=== PATIENT | female | born 1945 | race Caucasian/White ===

== ENCOUNTER 2016-09-16 19:43 | Emergency (ER) | payer SELFPAY ==
[~2016-09-16] VITALS: Ht 165.1 cm; Wt 110.5 kg
[2016-09-16 19:46] VITALS: Ht 165.1 cm; Wt 110.5 kg
[2016-09-16] MEDS ORDERED: NICARDipine HCL 30 MG CAPSULE PO ONE (20:30)
[2016-09-16 21:37] LABS: ADD SCAN DIFF NO
[2016-09-16 21:54] LABS: CREATININE 0.82 mg/dl (0.44-1.00)
[2016-09-16 21:55] LABS: CALCIUM 9.2 mg/dl (8.4-10.2)
[2016-09-16 22:06] LABS: TROPONIN-I 0.016 ng/ml (0.00-0.12)
--- NOTE | 2016-09-16 22:06 | RADRPT ---
PROCEDURE: CT Brain without contrast. CLINICAL INDICATION: Headache. TECHNIQUE: A CT of the brain was performed on a multislice detector CT scanner utilizing axial sec tions from the skull base through the vertex without contrast. Images were reviewed on a high-resolu [employer] PACS workstation. Exam CTDlvol = 47 mGy and DLP = 635 mGy-cm. COMPARISON: None available FINDINGS: There is age appropriate central and peripheral atrophy. There is no midline shift. There is a mil d degree of supratentorial periventricular and subcortical white matter hypodensities. There is no definite acute stroke. There is no mass lesion. There is no intracranial hemorrhage or abnormal ex tra-axial fluid collection. Visualized paranasal sinuses are clear. IMPRESSION: 1. No acute intracranial abnormality. 2. Nonspecific white matter changes most commonly seen with microvascular ischemic disease. RPTAT: [facility]VK .Myles Posadas MD, Date Time Electronically viewed and signed by .Mlyes Posadas MD, MD on 09/16/2016 22:06 .K/
--- NOTE | 2016-09-16 22:09 | ERD ---
ER Documentation Chief Complaint Date/Time DATE: 09/16/16 TIME: 22:05 Chief Complaint palpitations since last night. no cp/sob during intake. run out of meds HPI Very pleasant 71-year-old female who presents with generalized malaise for several months. The patient states that she ran out of her medications and has not been taking them for 4 months. Her blood pressure has been consistently elevated in the 200 range systolic. The patient describes generalized malaise over this timeframe with occasional headaches that are gradual, frontal and dull. Patient described feeling not well last night but denied any chest pain or shortness of breath. At triage she noted palpitations but denies this to me. She denies any exertional symptoms, no slurred speech, no motor weakness. No falls. ROS All systems reviewed and are negative except as per history of present illness. Medications Home Meds Active Scripts Levothyroxine Sodium* (Levothyroxine Sodium*) 75 Mcg Tablet, 75 MCG PO BEFORE BREAKFAST, #30 TAB Prov:ARIELLA HURST MD 09/16/16 Hydrochlorothiazide* (Hydrochlorothiazide*) 25 Mg Tab, 25 MG PO DAILY, #30 TAB Prov:ARIELLA HURST MD 09/16/16 Aspirin* (Aspirin* EC) 81 Mg Tablet.dr, 81 MG PO DAILY, #30 TAB Prov:ARIELLA HURST MD 09/16/16 Amlodipine Besylate* (Amlodipine Besylate*) 10 Mg Tablet, 10 MG PO DAILY, #30 TAB Prov:ARIELLA HURST MD 09/16/16 Lisinopril* (Lisinopril*) 2.5 Mg Tablet, 2.5 MG PO DAILY, #30 TAB Prov:ARIELLA HURST MD 09/16/16 Allergies Allergies: Coded Allergies: Penicillins (Verified Allergy, Unknown, rash, 09/16/16) PMhx/Soc History of Surgery: Yes (Rt shoulder sx,cataract sx,tonsillectomy, X4) Anesthesia Reaction: No Hx Neurological Disorder: No Hx Respiratory Disorders: No Hx Cardiac Disorders: Yes (HTN, high cholesterol) Hx Psychiatric Problems: No Hx Miscellaneous Medical Probl: Yes (thyroid problem) Hx Alcohol Use: No Hx Substance Use: No Hx Tobacco Use: No Smoking Status: Never smoker FmHx Family History: No diabetes Physical Exam Vitals Vital Signs Date Time Temp Pulse Resp B/P Pulse Ox O2 Delivery O2 Flow Rate FiO2 09/16/16 21:19 55 18 195/115 97 Room Air 09/16/16 20:39 55 14 207/120 98 Room Air 09/16/16 19:46 97.7 62 20 236/112 98 Physical Exam General: Well developed, well nourished, no acute distress Head: Normocephalic, atraumatic. Eyes: Pupils equally reactive, EOM intact ENT: Moist mucous membranes Neck: Supple, no lymphadenopathy Respiratory: Lungs clear bilaterally, no distress Cardiovascular: RRR, no murmurs, rubs, or gallops Abdominal: Soft, non-tender, non-distended, no peritoneal signs : Deferred MSK: No edema, no unilateral swelling, 5/5 strength Neurologic: Alert and oriented, moving all extremities, normal speech, no focal weakness, no cerebellar signs, steady gait Skin: No rash Psych: Normal mood Result Diagram: 09/16/16209909/16/16 2100 Results 24 hrs Laboratory Tests Test 09/16/16 21:00 Anion Gap 15 Basophils # 0.110^3/ul Basophils % 1.1% Blood Urea Nitrogen 19mg/dl Calcium Level 9.2mg/dl Carbon Dioxide Level 26mmol/L Chloride Level 104mmol/L Creatinine 0.82mg/dl Eosinophils # 0.410^3/ul Eosinophils % 5.1% Glucose Level 116mg/dl Hematocrit 43.8% Hemoglobin 14.9g/dl Lymphocytes # 3.010^3/ul Lymphocytes % 38.9% Mean Corpuscular Hemoglobin 30.2pg Mean Corpuscular Hemoglobin Concent 34.0g/dl Mean Corpuscular Volume 88.8fl Mean Platelet Volume 11.1fl Monocytes # 0.710^3/ul Monocytes % 8.8% Neutrophils # 3.510^3/ul Neutrophils % 46.0% Nucleated Red Blood Cells # 0.010^3/ul Nucleated Red Blood Cells % 0.0/100WBC Platelet Count 35452^3/UL Potassium Level 4.0mmol/L Red Blood Count 4.9310^6/ul Red Cell Distribution Width 13.3% Sodium Level 141mmol/L Troponin I 0.016ng/ml White Blood Count 7.610^3/ul Current Medications Medications (Trade) Dose Ordered Sig/Sandy Route PRN Reason Start Time Stop Time Status Last Admin Dose Admin Nicardipine HCl (Cardene) 30 mg ONCE ONCE PO 09/16/16 20:30 09/16/16 20:31 DC 09/16/16 21:15 Procedures/MDM EKG, MONITORS, & DIAGNOSTIC IMAGING: EKG: I reviewed and interpreted a 12-lead EKG. Rhythm: Normal sinus rhythm Ectopy: None Intervals: No abnormalities ST segments: No elevations or depressions T waves: No contiguous inversions CT brain: No acute process LAB INTERPRETATION: No evidence of endorgan dysfunction MEDICAL DECISION MAKING: The patient presents with hypertensive urgency. She does describe generalized malaise but has no evidence of stroke, no evidence of intracranial hemorrhage, no signs or symptoms that would be consistent with angina or acute coronary syndrome. No evidence of renal failure. This is likely secondary to the patient's inability to pay for her medications. I believe the patient will benefit from gentle blood pressure control with oral medications. If we can rule out endorgan dysfunction the patient can be safely discharged home. The patient feels comfortable with this and does not want hospitalization. ER COURSE: Laboratory testing and diagnostic imaging do not suggest endorgan dysfunction. The patient was given 30 mg p.o. cardene with improved blood pressure. Her symptoms have improved. At this time I believe the patient is safe for outpatient management. I kept the patient and/or family informed of laboratory and diagnostic imaging results throughout the emergency room course. DISPOSITION PLAN: We discussed follow up with the patient's primary care doctor within 24 to 48 hours as needed. We also discussed return to the emergency room for worsening symptoms or worsening condition. Discharge Medications: Lisinopril 2.5 mg daily Amlodipine 10 mg daily Aspirin 81 mg daily Hydrochlorothiazide 25 mg daily Levothyroxine 75 g daily Departure Diagnosis: Primary Impression: Hypertensive urgency Condition: Stable ARIELLA HURST MD Sep 16, 2016 22:09
[2016-09-16 22:17] LABS: BASOPHIL # 0.1 10^3/ul (0.0-0.1); BASOPHILS % 1.1 % (0.0-2.0); EOSINOPHILS # 0.4 10^3/ul (0.0-0.5); EOSINOPHILS % 5.1 % (0.0-7.0); HEMATOCRIT 43.8 % (37.0-47.0); HEMOGLOBIN 14.9 g/dl (12.0-16.0); LYMPHOCYTES % 38.9 % (15.0-51.0); MEAN CORPUSCULAR HEMOGLOBIN 30.2 pg (29.0-33.0); MEAN CORPUSCULAR VOLUME 88.8 fl (82.0-101.0); MEAN PLATELET VOLUME 11.1 fl (7.4-10.4); MONOCYTE # 0.7 10^3/ul (0.3-0.9); MONOCYTES % 8.8 % (0.0-11.0); NEUTROPHIL # 3.5 10^3/ul (1.6-7.5); PLATELET COUNT 250 10^3/UL (140-415); RED BLOOD COUNT 4.93 10^6/ul (4.20-5.40); RED CELL DISTRIBUTION WIDTH 13.3 % (11.5-14.5); WHITE BLOOD COUNT 7.6 10^3/ul (4.8-10.8)
[2016-09-16] MEDS ORDERED: LISI2.5T59 PO (22:26)
[2016-09-16] MEDS ORDERED: AMLO-147 PO (22:26)
[2016-09-16] MEDS ORDERED: HYD25 PO (22:26)
[2016-09-16] MEDS ORDERED: LEVO75TA5 PO (22:26)
[2016-09-16] MEDS ORDERED: ASPI-664 PO (22:26)
[2016-09-16 23:01] VITALS: BP 139/87; PULSE 56; RESP 18
== END 2016-09-16 23:13 | disposition home or self-care (01) ==
LOC: E/R 19:43
DX: I16.0 Hypertensive urgency (principal); R40.2142 Coma scale, eyes open, spontaneous, at arrival to emergency department; R40.2252 Coma scale, best verbal response, oriented, at arrival to emergency department; R40.2362 Coma scale, best motor response, obeys commands, at arrival to emergency department; R51 Headache; Z79.82 Long term (current) use of aspirin
CPT/HCPCS: 36415; 70450; 80048; 84484; 85025; 93005